=== PATIENT | male | born 1980 | race Caucasian/White ===

== ENCOUNTER 2024-12-01 11:32 | Emergency (ER) | payer OTHER ==
[2024-12-01 11:54] LABS: #Basophils 0.07 10x3/uL (0.0-0.2); #Eosinophils Less than 0.03 10x3/uL (0.0-0.7); #Monocytes 0.86 10x3/uL (0.11-0.59); #Neutrophils 15.05 10x3/uL (1.40-6.50); %Basophils 0.4 % (0.0-1.0); %Eosinophils 0.1 % (0.0-10.0); %Lymphocytes 6.3 % (21.0-51.0); %Monocytes 5.0 % (0.0-10.0); %Neutrophils 87.7 % (42.0-75.0); Hematocrit 43.0 % (42.0-52.0); Hemoglobin 14.6 g/dL (14.0-18.0); Mean Corpuscular Hemoglobin 30.5 pg (27.0-31.0); Mean Corpuscular Volume 90.0 fL (78.0-98.0); Platelet Count 272 10x3/uL (130-400); Red Blood Cell (RBC) Count 4.78 mill/uL (4.70-6.10); White Blood Cell (WBC) Count 17.17 10x3/uL (4.8-10.8)
[2024-12-01 12:14] LABS: INR-International Normal Ratio 1.0; PTT 29.2 sec (22.9-36.1); Prothrombin Time 12.7 sec (12.0-14.7)
[2024-12-01 12:23] LABS: ALT (SGPT) 21 U/L (Less than 45); AST (SGOT) 59 U/L (11-34); Albumin 4.6 g/dL (3.1-4.5); Alkaline Phosphatase 72 U/L (40-110); Anion Gap 14 mmol/L (10-20); BUN (Urea Nitrogen) 11 mg/dL (8.9-20.6); Bilirubin, Total 1.0 mg/dL (0.3-1.2); Calc. Creatinine Clearance 0 mL/min (70-130); Calcium 9.6 mg/dL (7.8-10.44); Carbon Dioxide 23 mmol/L (22-29); Chloride 105 mmol/L (98-107); Globulin 4.1 g/dL (2.4-3.5); Glucose 80 mg/dL (70-105); Lipase 18 U/L (8-78); Potassium 4.9 mmol/L (3.5-5.1); Sodium 137 mmol/L (136-145)
[2024-12-01] MEDS ORDERED: Iopamidol-370 76% 500 ML MDV (1 ML CHARGE) ONE (12:29)
[2024-12-01 13:00] LABS: Bacteria/HPF None Seen HPF (None Seen); CAUTI Indications for Culture Pelvic or flank pain; Glucose, Urine (Dipstick) Normal (Negative); Leukocyte Negative Leu/uL (Negative); Protein, Urine (Dipstick) Negative (Neg-Trace); RBC/HPF 0-3 HPF (0-3); Specific Gravity, Urine 1.031 (1.002-1.036); WBC/HPF 0-3 HPF (0-3)
[2024-12-01 13:02] LABS: Urine Culture Reflex No No
[2024-12-01 13:09] LABS: Cocaine Metabolite Screen Negative (Negative); THC/Cannabinoid Screen Negative (Negative); Tricyclic Screen Negative (Negative)
== END 2024-12-01 14:48 ==
LOC: ERS 11:32
DX: M25.552 Pain in left hip (principal); E03.9 Hypothyroidism, unspecified; Z55.6 Problems related to health literacy; Z79.890 Hormone replacement therapy; V80.010A Animal-rider injured by fall from or being thrown from horse in noncollision accident, initial encounter
CPT/HCPCS: 36415; 70450; 70498; 71045; 71260; 72125; 72170; 74177; 80053; 80306; 80307; 81001; 83605; 83690; 84484; 85025; 85610; 85730; 86850; 86900; 86901; 93005; 94760; Q9967